=== PATIENT | female | born 1985 | race Asian ===

== ENCOUNTER 2017-12-29 02:42 | Emergency (ER) | payer BC ==
[2017-12-29] MEDS ORDERED: GI Cocktail Oral Solution 30 ML PO ONE (03:16)
[2017-12-29] MEDS ORDERED: Sodium Chloride 0.9% 10 ML Syringe FLUSH PRN (03:16)
[2017-12-29] MEDS ORDERED: Pantoprazole 40 MG Vial IVPUSH ONE (03:17)
[2017-12-29] MEDS ORDERED: Sodium Chloride 0.9% 1,000 ML IV SCH (03:30)
--- NOTE | 2017-12-29 03:48 | EDM.PDOC ---
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 She states she does have a history of ulcers. She states during the day it is not as painful as it is during the night. Nighttime is much worse. She also says that it has progressively worsened. She denies headache, chest pain, abdominal pain, no blood in urine or stool, no vomiting. She does take Nexium daily. No other medications. Denies prior surgeries. Onset: Gradual Onset Date: 12/10/17 Duration: Getting Worse, Intermittent Location: Reports: Abdomen Quality: Reports: Burning Severity: Moderate Improves with: Reports: Medication Associated Symptoms: Reports: No Other Symptoms Middle Epigastric Pain Score (Numeric/FACES): 8 - Related Data Allergies Allergy/AdvReac Type Severity Reaction Status Date / Time amoxicillin Allergy Other Verified 12/29/17 03:56 Home Meds: Home Meds Esomeprazole [NexIUM] 40 mg PO DAILY 12/29/17 [History] ED ROS GENERAL - Review of Systems Review Of Systems: See Below Constitutional: Reports: No Symptoms HEENT: Reports: No Symptoms Respiratory: Reports: No Symptoms Cardiovascular: Reports: No Symptoms Endocrine: Reports: No Symptoms GI/Abdominal: Reports: Abdominal Pain : Reports: No Symptoms Musculoskeletal: Reports: No Symptoms Skin: Reports: No Symptoms Neurological: Reports: No Symptoms Psychiatric: Reports: No Symptoms Hematologic/Lymphatic: Reports: No Symptoms Immunologic: Reports: No Symptoms ED EXAM, GI/ABD - Physical Exam Exam: See Below Exam Limited By: Language Barrier General Appearance: Alert, WD/WN, Mild Distress Eyes: Bilateral: Normal Appearance, EOMI Ears: Normal TMs Nose: Normal Inspection, Normal Mucosa, No Blood Throat/Mouth: Normal Inspection, Normal Lips, Normal Teeth, Normal Gums, Normal Oropharynx, Normal Voice, No Airway Compromise Head: Atraumatic, Normocephalic Neck: Normal Inspection, Supple, Non-Tender, Full Range of Motion Respiratory/Chest: No Respiratory Distress, Lungs Clear, Normal Breath Sounds, No Accessory Muscle Use, Chest Non-Tender Cardiovascular: Normal Peripheral Pulses, Regular Rate, Rhythm, No Edema, No Gallop, No JVD, No Murmur, No Rub GI/Abdominal Exam: Normal Bowel Sounds, Soft, Tender Extremities: Normal Inspection, Normal Range of Motion, Non-Tender, Normal Capillary Refill, No Pedal Edema Neurological: Alert, Oriented, CN II-XII Intact, Normal Cognition, Normal Gait, Normal Reflexes, No Motor/Sensory Deficits Psychiatric: Normal Affect, Normal Mood Skin Exam: Warm, Dry, Intact, Normal Color, No Rash Lymphatic: No Adenopathy Course - Vital Signs Last Recorded V/S: Last Vital Signs Temp 36.8 C 12/29/17 03:59 Pulse 73 12/29/17 03:59 Resp 14 12/29/17 03:59 BP 138/78 12/29/17 03:59 Pulse Ox 98 12/29/17 03:59 - Orders/Labs/Meds Orders: Active Orders 24 hr Category Date Time Status Abdomen Pelvis w Cont [CT] Stat Exams 12/29/17 04:21 Taken HCG QUALITATIVE,URINE [URCHEM] Stat Lab 12/29/17 04:00 Ordered UA W/MICROSCOPIC [URIN] Stat Lab 12/29/17 04:05 Ordered Saline Lock Insert [OM.PC] Routine Oth 12/29/17 03:16 Ordered Labs: Laboratory Tests 12/29/17 12/29/17 12/29/17 Range/Units 03:30 03:30 04:00 WBC 6.3 (4.0-10.0) x10^3/uL RBC 3.92 L (4.00-5.50) x10^6/uL Hgb 12.6 (12.0-16.0) g/dL Hct 36.5 (33.0-47.0) % MCV 93.1 H (78.0-93.0) fL MCH 32.1 H (26.0-32.0) pg MCHC 34.5 (32.0-36.0) g/dL RDW Coeff of [place] 12.4 (10.0-15.0) % Plt Count 275 (130-400) x10^3/uL Neut % (Auto) 56.2 (50.0-80.0) % Lymph % (Auto) 31.4 (25.0-50.0) % Worth % (Auto) 7.2 (2.0-11.0) % Eos % (Auto) 5.0 H (0.0-4.0) % Baso % (Auto) 0.2 (0.2-1.2) % Sodium 141 (138-146) mmol/L Potassium 3.5 (3.5-4.9) mmol/L Chloride 101 (98-109) mmol/L Carbon Dioxide 28 (21-32) mmol/L Anion Gap 15.5 (10-20) mmol/L BUN 11 (7-18) mg/dL Creatinine 0.7 (0.55-1.02) mg/dL Est Cr Clr Drug Dosing TNP Estimated GFR (MDRD) > 60 Glucose 98 (74-106) mg/dL Calcium 8.6 (8.5-10.1) mg/dL Corrected Calcium 8.92 (8.5-10.1) mg/dL Total Bilirubin 0.6 (0.2-1.0) mg/dL AST 16 (15-37) U/L ALT 28 (14-59) U/L Alkaline Phosphatase 63 (46-116) U/L Troponin I < 0.017 (<=0.056) ng/mL C-Reactive Protein < 0.2 (<=0.9) mg/dL Total Protein 7.2 (6.4-8.2) g/dL Albumin 3.6 (3.4-5.0) g/dL Globulin 3.6 Albumin/Globulin Ratio 1.00 Urine Color (YELLOW) Urine Appearance (CLEAR) Urine pH (5.0-8.0) Ur Specific [place] Urine Protein (NEGATIVE) mg/dL Urine Glucose (UA) (NEGATIVE) mg/dL Urine Ketones (NEGATIVE) mg/dL Urine Occult Blood (NEGATIVE) Urine Nitrite (NEGATIVE) Urine Bilirubin (NEGATIVE) Urine Urobilinogen (0.2) EU/dL Ur Leukocyte Esterase (NEGATIVE) Urine RBC (NOT SEEN) /HPF Urine WBC (NOT SEEN) /HPF Ur Squamous Epith Cells (NEGATIVE) /HPF Amorphous Sediment Urine Bacteria (NEGATIVE) /HPF Urine Mucus (NEGATIVE) /LPF Urine HCG, Qual Negative (NEGATIVE) 12/29/17 Range/Units 04:05 WBC (4.0-10.0) x10^3/uL RBC (4.00-5.50) x10^6/uL Hgb (12.0-16.0) g/dL Hct (33.0-47.0) % MCV (78.0-93.0) fL MCH (26.0-32.0) pg MCHC (32.0-36.0) g/dL RDW Coeff of [place] (10.0-15.0) % Plt Count (130-400) x10^3/uL Neut % (Auto) (50.0-80.0) % Lymph % (Auto) (25.0-50.0) % Worth % (Auto) (2.0-11.0) % Eos % (Auto) (0.0-4.0) % Baso % (Auto) (0.2-1.2) % Sodium (138-146) mmol/L Potassium (3.5-4.9) mmol/L Chloride (98-109) mmol/L Carbon Dioxide (21-32) mmol/L Anion Gap (10-20) mmol/L BUN (7-18) mg/dL Creatinine (0.55-1.02) mg/dL Est Cr Clr Drug Dosing Estimated GFR (MDRD) Glucose (74-106) mg/dL Calcium (8.5-10.1) mg/dL Corrected Calcium (8.5-10.1) mg/dL Total Bilirubin (0.2-1.0) mg/dL AST (15-37) U/L ALT (14-59) U/L Alkaline Phosphatase (46-116) U/L Troponin I (<=0.056) ng/mL C-Reactive Protein (<=0.9) mg/dL Total Protein (6.4-8.2) g/dL Albumin (3.4-5.0) g/dL Globulin Albumin/Globulin Ratio Urine Color Yellow (YELLOW) Urine Appearance Cloudy H (CLEAR) Urine pH 7.0 (5.0-8.0) Ur Specific [place] 1.015 Urine Protein Negative (NEGATIVE) mg/dL Urine Glucose (UA) Negative (NEGATIVE) mg/dL Urine Ketones Negative (NEGATIVE) mg/dL Urine Occult Blood Moderate H (NEGATIVE) Urine Nitrite Negative (NEGATIVE) Urine Bilirubin Negative (NEGATIVE) Urine Urobilinogen 0.2 (0.2) EU/dL Ur Leukocyte Esterase Small H (NEGATIVE) Urine RBC 0-5 (NOT SEEN) /HPF Urine WBC 0-5 (NOT SEEN) /HPF Ur Squamous Epith Cells Moderate H (NEGATIVE) /HPF Amorphous Sediment Few Urine Bacteria Few H (NEGATIVE) /HPF Urine Mucus Rare H (NEGATIVE) /LPF Urine HCG, Qual (NEGATIVE) Meds: Medications Discontinued Medications Generic Name Dose Route Start Last Admin Trade Name Freq PRN Reason Stop Dose Admin Al Hydroxide/Mg Hydroxide 30 ml 12/29/17 03:16 12/29/17 03:29 Gi Cocktail PO 12/29/17 03:17 30 ml ONETIME ONE Administration Sodium Chloride 1,000 mls @ 999 mls/hr 12/29/17 03:30 12/29/17 03:31 Normal Saline IV 999 mls/hr ASDIRECTED CHIVO Administration Iopamidol 100 ml 12/29/17 05:12 12/29/17 05:13 Isovue-300 (61%) IVPUSH 12/29/17 05:13 100 ml ONETIME ONE Administration Pantoprazole Sodium 40 mg 12/29/17 03:17 12/29/17 03:33 Protonix Iv IVPUSH 12/29/17 03:18 40 mg ONETIME ONE Administration Sodium Chloride 10 ml 12/29/17 03:16 Saline Flush FLUSH ASDIRECTED PRN Keep Vein Open - Radiology Interpretation Free Text/Narrative:: CT of abdomen pelvis does show some thickening of the gall bladder wall. Recommend ultrasound for further diagnostic value looking for cholecystitis Departure - Departure Time of Disposition: 05:57 Disposition: Home, Self-Care 01 Condition: Good Clinical Impression: Ulcer - Discharge Information *PRESCRIPTION DRUG MONITORING PROGRAM REVIEWED*: Not Applicable *COPY OF PRESCRIPTION DRUG MONITORING REPORT IN PATIENT SHERRELL: Not Applicable Instructions: Peptic Ulcer, [id number], Gallbladder Nuclear Scan, Care After , Cholecystitis, [id number] Referrals: PCP,Unobtain [Primary Care Provider] - Forms: ED Department Discharge Additional Instructions: Drink plenty of water. You need to establish care with a provider in [place]. You need to see a regional retail sales manager for additional work up. Your gall bladder has some irritation and wall thickening. If your abdominal pain continues or worsens, you should see your primary for additional scans. Please call the hospital with any additional questions or concerns. - Problem List & Annotations (1) Ulcer SNOMED Code(s): 366389090 Code(s): OWN1006 - Status: Acute Priority: Low - Problem List Review Problem List Initiated/Reviewed/Updated: Yes - My Orders Last 24 Hours: My Active Orders 12/29/17 03:16 Saline Lock Insert [OM.PC] Routine 12/29/17 04:00 HCG QUALITATIVE,URINE [URCHEM] Stat 12/29/17 04:05 UA W/MICROSCOPIC [URIN] Stat 12/29/17 04:21 Abdomen Pelvis w Cont [CT] Stat - Assessment/Plan Last 24 Hours: My Active Orders 12/29/17 03:16 Saline Lock Insert [OM.PC] Routine 12/29/17 04:00 HCG QUALITATIVE,URINE [URCHEM] Stat 12/29/17 04:05 UA W/MICROSCOPIC [URIN] Stat 12/29/17 04:21 Abdomen Pelvis w Cont [CT] Stat Assessment:: peptic ulcer Plan: Drink plenty of water. You need to establish care with a provider in [place]. You need to see a regional retail sales manager for additional work up. Your gall bladder has some irritation and wall thickening. If your abdominal pain continues or worsens, you should see your primary for additional scans. Please call the hospital with any additional questions or concerns.
[2017-12-29 03:50] LABS: CHLORIDE,CL 101 mmol/L (98-109); SODIUM,NA 141 mmol/L (138-146)
[2017-12-29 04:20] LABS: ANION GAP 15.5 mmol/L (10-20)
[2017-12-29] MEDS ORDERED: Iopamidol 612 MG/ML 100 ML Bottle IVPUSH ONE (05:12)
== END 2017-12-29 06:17 | disposition home or self-care (01) ==
LOC: VM.ED 02:42
DX: K27.9 Peptic ulcer, site unspecified, unspecified as acute or chronic, without hemorrhage or perforation (principal); Z88.1 Allergy status to other antibiotic agents; Z79.899 Other long term (current) drug therapy
CPT/HCPCS: 74177; 80053; 81001; 81025; 84484; 85025; 86140; 96365; 96375; 99284; A9270; C9113; J7030; Q9967

== ENCOUNTER 2021-12-31 19:41 | Emergency (ER) | payer BC ==
[2021-12-31] MEDS ORDERED: Take Home: Ciprofloxacin 500 MG Tab, 2 Tab Pack PO ONE (20:33)
[2021-12-31 20:37] LABS: CHLORIDE,CL 101 mmol/L (98-107); SODIUM,NA 139 mmol/L (136-145)
[2021-12-31 20:38] LABS: ANION GAP 16.2 mmol/L (5-15); ESTIMATED GFR 85 mL/min (>=60)
[2021-12-31] MEDS: Acetaminophen 500 MG Tab PO ONE (20:45)
[2021-12-31] MEDS: Take Home: Ciprofloxacin 500 MG Tab, 2 Tab Pack PO ONE (21:00)
== END 2021-12-31 21:10 | disposition home or self-care (01) ==
LOC: VM.ED 19:41
DX: N30.00 Acute cystitis without hematuria (principal); K21.9 Gastro-esophageal reflux disease without esophagitis; Z88.0 Allergy status to penicillin; Z79.899 Other long term (current) drug therapy
CPT/HCPCS: 36415; 80053; 81001; 85025; 87086; 99283; 99284; A9270